=== PATIENT | female | born 1975 | race Caucasian/White ===

== ENCOUNTER → 2016-11-22 | Outpatient (CLI) | payer OTHER | LOC: COL.RAD 10:26 | DX: Z02.89 Encounter for other administrative examinations (principal) ==

== ENCOUNTER → 2016-12-01 | Outpatient (CLI) | payer OTHER | LOC: COL.RAD 10:18 | DX: M17.11 Unilateral primary osteoarthritis, right knee (principal) ==

== ENCOUNTER → 2017-10-27 | Outpatient (CLI) | payer OTHER | LOC: MC.RAD 11:40 | DX: Z12.31 Encounter for screening mammogram for malignant neoplasm of breast (principal) ==